=== PATIENT | female | born 2000 | race American Indian/Alaskan Native ===

== ENCOUNTER 2021-10-31 23:48 | Emergency (ER) | payer SELFPAY ==
[2021-11-01 00:20] VITALS: BP 129/82
== END 2021-11-01 04:20 | disposition left against medical advice (07) ==
LOC: ED 23:48
DX: O26.891 Other specified pregnancy related conditions, first trimester (principal); Z53.21 Procedure and treatment not carried out due to patient leaving prior to being seen by health care provider; R10.9 Unspecified abdominal pain; Z3A.14 14 weeks gestation of pregnancy